=== PATIENT | female | born 2000 | race Caucasian/White ===

== ENCOUNTER 2019-09-10 11:53 | Emergency (ER) | payer OTHER ==
[2019-09-10] MEDS ORDERED: Ketorolac 60 MG/2 ML SDV IM ONE (12:35)
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
--- NOTE | 2019-09-10 13:37 | CRLCR ---
INDICATION: TRAUMA PAIN HISTORY: Trauma. Pain. COMPARISON: None. TECHNIQUE: Left ankle, 3 portable views. FINDINGS: Transverse fracture deformity of the left lateral malleolus, with associated soft tissue swelling. The tibial plafond and talar dome are intact. There is also a suspected fracture involving the left 5th metatarsal base, seen best on the lateral projection. Dedicated radiographs of the left foot are suggested for further assessment. Subtalar and talonavicular joints are normal. Boehler`s angle is preserved. IMPRESSION: 1. Transverse fracture deformity of the left lateral malleolus, with soft tissue swelling. 2. Suspected fracture of the left 5th metatarsal base. Dedicated plain radiographs are suggested for further assessment. 3. Case discussed with Officer, emergency department, 09/10/2019, 1332 hours. Dictated by Rashi Chamberlain MD @ 09/10/2019 1:35:32 PM Dictated by: Rashi Chamberlain MD @ 09/10/2019 13:35:45 (Electronically Signed)
--- NOTE | 2019-09-10 14:57 | CRLCR ---
INDICATION: trauma,pain HISTORY: Trauma. Pain. COMPARISON: Left ankle, 3 views 09/10/2019. TECHNIQUE: Left foot, 3 portable views. FINDINGS: There is a fracture involving the left 5th metatarsal base. This is seen best on the lateral projection. Fracture of the left lateral malleolus is better assessed on the ankle series of the same date. The Lisfranc joint is in anatomic alignment. There is no articular erosion. There is no periarticular osteopenia. Subtalar and talonavicular joints are normal. IMPRESSION: Nondisplaced fracture deformity of the left 5th metatarsal base. Lisfranc joint is in anatomic alignment. Dictated by Rashi Chamberlain MD @ 09/10/2019 2:56:32 PM Dictated by: Rashi Chamberlain MD @ 09/10/2019 14:56:49 (Electronically Signed)
[2019-09-10] MEDS ORDERED: fentaNYL 100 MCG/2 ML SDV IM ONE (15:07)
== END 2019-09-10 16:15 | disposition home or self-care (01) ==
LOC: JP.ED 11:53
DX: S82.892A Other fracture of left lower leg, initial encounter for closed fracture (principal); S82.62XA Displaced fracture of lateral malleolus of left fibula, initial encounter for closed fracture; Z88.1 Allergy status to other antibiotic agents; Z88.2 Allergy status to sulfonamides; Z79.899 Other long term (current) drug therapy; V86.79XA Person on outside of other special all-terrain or other off-road motor vehicles injured in nontraffic accident, initial encounter; Y99.0 Civilian activity done for income or pay
CPT/HCPCS: 29515; 73610; 73630; 96372; 99283; J1885; J3010